=== PATIENT | female | born 1945 | race Caucasian/White ===

== ENCOUNTER → 2022-06-11 10:54 | Outpatient (BNVA) | payer MEDICARE, OTHER, SELFPAY | PROVIDERS: Visit Provider Nurse Practitioner Family | DX: R68.89 Other general symptoms and signs (principal); J10.1 Influenza due to other identified influenza virus with other respiratory manifestations; I10 Essential (primary) hypertension | CPT/HCPCS: 87071; 87400; 87880 ==